=== PATIENT | male | born 1940 | race Caucasian/White ===

== ENCOUNTER 2017-04-09 14:37 | Inpatient (IN) | payer OTHER ==
[~2017-04-09] VITALS: Ht 175.3 cm; Wt 90.7 kg
[~2017-04-09 14:37] MED LIST: AUTOJECT 21 EACH; LANTUS SOL100 UNIT/1; LYRICA100 MG PO
[2017-04-16] MEDS ORDERED: CLONAZEPAM1 MG PO (13:17)
[2017-04-16] MEDS ORDERED: DOCUSATE SODIU100 MG PO (13:17)
[2017-04-16] MEDS ORDERED: PERCOCET 5-3251 EACH PO (13:17)
== END 2017-04-16 18:03 | DRG 472 ==
LOC: PED 04-15 05:30 → O/R 04-15 05:30 → SURH 04-15 09:45 → PED 04-15 13:13 → SURH 04-15 13:40 → PED 04-16 18:03
PROVIDERS: Orthopaedic Surgery Orthopaedic Surgery of the Spine
PROC: 0RG20A0 Fusion of 2 or more Cervical Vertebral Joints with Interbody Fusion Device, Anterior Approach, Anterior Column, Open Approach (ICD-10-PCS; 2017-04-15)
PROC: 0RT30ZZ Resection of Cervical Vertebral Disc, Open Approach (ICD-10-PCS; principal; 2017-04-15 09:45)
DX: M47.12 Other spondylosis with myelopathy, cervical region (principal); M50.022 Cervical disc disorder at C5-C6 level with myelopathy; S14.129A Central cord syndrome at unspecified level of cervical spinal cord, initial encounter; E11.9 Type 2 diabetes mellitus without complications

== ENCOUNTER 2017-04-20 13:46 | Emergency (ER) | payer OTHER ==
[~2017-04-20] VITALS: Ht 185.4 cm; Wt 90.7 kg
[~2017-04-20 13:46] MED LIST changes: +CLONAZEPAM1 MG PO; +DOCUSATE SODIU100 MG PO; +PERCOCET 5-3251 EACH PO
== END 2017-04-20 17:07 | disposition home or self-care (01) ==
LOC: ER 13:46
DX: B34.9 Viral infection, unspecified (principal); J11.1 Influenza due to unidentified influenza virus with other respiratory manifestations